=== PATIENT | female | born 1980 | race Caucasian/White ===

== ENCOUNTER 2017-04-05 20:07 | Emergency (ER) | payer OTHER ==
[~2017-04-05 20:07] MED LIST: ALAVERT10 M1; ALBUTEROL17 G2; ALBUTEROL17 GM; ALBUTEROL17 GM INH; ALLEGRA ALLERG180 MG PO; AMITRIPTYLINE H50 MG PO; ANTIVERT PO; AZITHROMYCIN250 MG PO; BACTRIM DS TABL1 TA1 PO; CELEXA20 MG; CELEXA20 MG PO; CIPRO PO; DICYCLOMINE HCL20 MG PO; FIORICET 50-321 EACH PO; MACROBID100 M1 PO; MULTIVITAMIN W-1 TAB; ORTHO TRI-7 DAYS X; PRENATAL1 TA1 PO; PRILOSEC PO; PROGESTERONE SUPP VAG; PROTONIX PO; TYLENOL #3 PO; ZOFRAN ODT4 MG/UDTAB PO; ZOFRAN PO
[2017-04-05] MEDS ORDERED: DITROPAN5 MG PO (20:27)
[2017-04-05 20:32] LABS: URINE SOURCE CLEAN CATCH
[2017-04-05 20:35] LABS: MICRO INDICATED? YES; URINE APPEARANCE HAZY; URINE BILIRUBIN NEG (NEG); URINE BLOOD 2+ (NEG); URINE COLOR YELLOW; URINE GLUCOSE NEG (NORM); URINE KETONE NEG (NEG); URINE LEUKOCYTE ESTERASE 3+ (NEG); URINE NITRATE NEG (NEG); URINE PROTEIN TRACE (NEG); URINE UROBILINOGEN 0.2 MG/DL (NORM)
[2017-04-05 20:36] LABS: CULTURE INDICATED? YES; URINE BACTERIA 2+ (NEG); URINE SQUAMOUS EPITHELIAL CELL FEW /[HPF]; URINE WBC 50-100 /[HPF] (0-5)
== END 2017-04-05 21:09 | disposition home or self-care (01) ==
LOC: SED 20:07
PROVIDERS: Emergency Medicine
DX: N39.0 Urinary tract infection, site not specified (principal); J45.909 Unspecified asthma, uncomplicated; G43.909 Migraine, unspecified, not intractable, without status migrainosus
CPT/HCPCS: 81003; 84703; 87086; 87088; 87186; 99283